=== PATIENT | male | born 2000 | race Caucasian/White ===

== ENCOUNTER 2022-12-07 22:11 | Emergency (ER) | payer SELFPAY ==
[~2022-12-07] VITALS: Ht 172.7 cm; Wt 73.0 kg
[2022-12-07 23:07] VITALS: BP 147/96
[2022-12-08] MEDS ORDERED: KETOROLAC 30MG/ML VIAL IM ONE (01:00)
[2022-12-08] MEDS ORDERED: AMOXICILLIN/POTASSIUM CLAVULANATE 875/125MG TAB PO ONE (01:00)
[2022-12-08] MEDS ORDERED: ACETAMINOPHEN 325MG TABLET PO ONE (01:00)
[2022-12-08] MEDS ORDERED: AMOX1TAB16 MT (01:18)
[2022-12-08] MEDS ORDERED: IBUP-2029 MT (01:18)
== END 2022-12-08 01:48 | disposition home or self-care (01) ==
LOC: ER 22:11
DX: K08.89 Other specified disorders of teeth and supporting structures (principal)
CPT/HCPCS: 96372; 99283; J1885; Z7610